=== PATIENT | male | born 1995 | race Caucasian/White ===

== ENCOUNTER 2017-07-24 10:54 | Day surgery (SDC) | payer MEDICAID ==
[~2017-07-24] VITALS: Ht 177.8 cm; Wt 54.3 kg
[~2017-07-24 10:54] MED LIST: [UNRECOGNIZED DRUG - REMARK]
[2017-07-24] MEDS ORDERED: LACTATED RINGERS 1,000 ML IV SCH (11:28)
[2017-07-24 11:38] VITALS: BP 116/77
[2017-07-24] MEDS ORDERED: PROPOFOL 10 MG/ML, 20ML ONE ×2 (12:11→13:09)
== END 2017-07-24 15:10 ==
LOC: OUT 10:54
PROVIDERS: ATTEND Internal Medicine Gastroenterology
DX: K25.9 Gastric ulcer, unspecified as acute or chronic, without hemorrhage or perforation (principal); K29.50 Unspecified chronic gastritis without bleeding; Z88.6 Allergy status to analgesic agent; Z88.8 Allergy status to other drugs, medicaments and biological substances
CPT/HCPCS: 43239; 88305; J2704; J7120

== ENCOUNTER 2018-09-29 18:01 | Emergency (ER) | payer MEDICAID ==
[~2018-09-29] VITALS: Ht 177.8 cm; Wt 55.1 kg
[~2018-09-29 18:01] MED LIST changes: +PANT40TA5 PO; +TAMS-11 PO
--- NOTE | 2018-09-29 18:37 | NUR ---
MD DISCUSSED PROCEDURAL SEDATION AND MED TO BE GIVEN WITH RISKS AND BENEFITS.
[2018-09-29] MEDS ORDERED: TAMSULOSIN 0.4 MG CAP.ER.24H ONE (18:51)
[2018-09-29] MEDS ORDERED: PROPOFOL 10 MG/ML, 20ML ONE ×2 (18:51→19:54)
[2018-09-29] MEDS ORDERED: PROPOFOL 10 MG/ML, 20ML IVPush ONE (19:00)
[2018-09-29] MEDS ORDERED: TAMSULOSIN 0.4 MG CAP.ER.24H PO ONE (19:00)
--- NOTE | 2018-09-29 19:06 | NUR ---
RPT TO ARTURO ABARCA
--- NOTE | 2018-09-29 19:46 | NUR ---
PROCEDUAL SEDATION IS READY VSS STABLE MD JORDAN WAS NOTIFIED
--- NOTE | 2018-09-29 21:06 | NUR ---
PT IS AWAKE MOTHER AT BED SIDE PT NEEDS URINE
--- NOTE | 2018-09-29 21:21 | NUR ---
PT UP AMBULATED TO URINATION PT WILL BE DC'D VSS STABLE
[2018-09-29 21:25] VITALS: BP 110/68
== END 2018-09-29 21:31 | disposition home or self-care (01) ==
LOC: ED 21:10
DX: T18.5XXA Foreign body in anus and rectum, initial encounter (principal); X58.XXXA Exposure to other specified factors, initial encounter; Y93.89 Activity, other specified; Y92.89 Other specified places as the place of occurrence of the external cause; Y99.8 Other external cause status
CPT/HCPCS: 72170; 99152; 99285

== ENCOUNTER 2019-03-14 14:13 | Emergency (ER) | payer MEDICAID ==
[~2019-03-14] VITALS: Ht 177.8 cm; Wt 55.6 kg
[2019-03-14 16:33] VITALS: BP 126/69
== END 2019-03-14 16:36 | disposition home or self-care (01) ==
LOC: ED 16:25
DX: R09.89 Other specified symptoms and signs involving the circulatory and respiratory systems (principal); R13.10 Dysphagia, unspecified; K21.9 Gastro-esophageal reflux disease without esophagitis
CPT/HCPCS: 70360; 99284

== ENCOUNTER 2020-11-03 10:55 | Emergency (ER) | payer MEDICAID ==
[~2020-11-03] VITALS: Ht 180.3 cm; Wt 56.7 kg
[~2020-11-03 10:55] MED LIST changes: -PANT40TA5 PO; +PANT40TA6 PO
[2020-11-03 11:00] VITALS: BP 162/90
--- NOTE | 2020-11-03 11:45 | NUR ---
US AND FAMILY AT BS.
--- NOTE | 2020-11-03 12:24 | NUR ---
ALL RESULTS BACK, PT FOR RECHECK.
== END 2020-11-03 12:43 | disposition home or self-care (01) ==
LOC: ED 12:34
DX: I80.8 Phlebitis and thrombophlebitis of other sites (principal)
CPT/HCPCS: 99284

== ENCOUNTER 2020-11-28 13:44 | Emergency (ER) | payer MEDICAID ==
[~2020-11-28] VITALS: Ht 180.3 cm; Wt 57.1 kg
[2020-11-28 13:48] VITALS: BP 133/85
--- NOTE | 2020-11-28 13:53 | NUR ---
TRAIGE: BLOOD CLOT RIGHT ARM: WAS HERE 2ND AND FOUND HERE, DID TWO WEEKS ASPRIN BUT STILL HAS PAIN. DR IN [place] DIRECTED HIM TO COME BACK TO ER. GOES TO [facility] - HX OF SJOGRENS, PERIPHERAL NEUROPATHY, SMALL FIBER NEUROPATHY, REYNAUDS, CHRONIC FATIGUE, CHRINC MIGRANES, RA, LUPUS, POTS.
[2020-11-28 14:32] LABS: BASOPHILS % (AUTO) 1 % (0-1); EOSINOPHILS % (AUTO) 2 % (1-7); LYMPHOCYTES % (AUTO) 29 % (22-44); MD NO; MEAN CORPUSCULAR HEMOGLOBIN 29.3 pg (27.5-34.5); MEAN CORPUSCULAR HGB CONC 34.5 g/dL (33.2-36.2); MEAN PLATELET VOLUME 7.6 fL (7.4-10.4); MONOCYTES % (AUTO) 6 % (2-9); NEUTROPHILS % (AUTO) 63 % (42-75); PLATELET COUNT 237 x10^3/uL (130-400); RED BLOOD COUNT 5.74 x10^6/uL (4.38-5.82); RED CELL DISTRIBUTION WIDTH 13.4 % (9.4-14.8)
[2020-11-28] MEDS ORDERED: KETOROLAC 30 MG/1 ML ONE (14:39)
[2020-11-28] MEDS ORDERED: ACETAMINOPHEN 500 MG TABLET ONE (14:39)
[2020-11-28 14:41] LABS: ALBUMIN 4.3 g/dL (3.4-5.0); ANION GAP 5 mmol/L (5-15); CALCIUM 8.7 mg/dL (8.5-10.1); CHLORIDE 107 mmol/L (98-107)
[2020-11-28 14:47] LABS: ALANINE AMINOTRANSFERASE 32 U/L (12-78); ALKALINE PHOSPHATASE 72 U/L (45-117); BILIRUBIN,TOTAL 0.6 mg/dL (0.2-1.0); CREATININE 1.08 mg/dL (0.7-1.3); TOTAL PROTEIN 7.6 g/dL (6.4-8.2); TROPONIN I < 0.015 ng/mL (0.000-0.045)
[2020-11-28] MEDS ORDERED: KETOROLAC 30 MG/1 ML IVPush ONE (15:00)
[2020-11-28] MEDS ORDERED: SODIUM CHLORIDE FLUSH 10ML SYR IVF ONE (15:00)
[2020-11-28] MEDS ORDERED: ACETAMINOPHEN 500 MG TABLET PO ONE (15:00)
[2020-11-28] MEDS ORDERED: OMNIPAQUE 350 MG/ML, 75ML BOTTLE ONE (15:55)
== END 2020-11-28 16:36 | disposition home or self-care (01) ==
LOC: ED 16:30
DX: R07.89 Other chest pain (principal); R06.02 Shortness of breath; M79.601 Pain in right arm; K21.9 Gastro-esophageal reflux disease without esophagitis
CPT/HCPCS: 36415; 71275; 80053; 84484; 85025; 93005; 93971; 96374; 99285; J1885; Q9967

== ENCOUNTER 2021-02-01 07:28 | Day surgery (SDC) | payer MEDICAID ==
[~2021-02-01] VITALS: Ht 180.3 cm; Wt 54.3 kg
[~2021-02-01 07:28] MED LIST changes: +ALBU90AE INH; +FLUT9.9S NS; +MULT-658 PO; +SUCR1TAB PO; +VITA1TAB38 PO; +Vitamin c PO
[2021-02-01 08:17] VITALS: BP 115/81
[2021-02-01] MEDS ORDERED: hydrALAzine 20 MG/ML, 1ML IV PRN (08:30)
[2021-02-01] MEDS ORDERED: PROMETHAZINE 25 MG/ML, 1ML IVPush PRN (08:30)
[2021-02-01] MEDS ORDERED: LABETALOL 5MG/ML, 20ML IV PRN (08:30)
[2021-02-01] MEDS ORDERED: LACTATED RINGERS 1,000 ML IV SCH (08:30)
[2021-02-01] MEDS ORDERED: FENTANYL PF 100 MCG/2ML IV PRN (08:30)
[2021-02-01] MEDS ORDERED: CHLORHEXIDINE 15 ML UDC PO ONE (08:30)
[2021-02-01] MEDS ORDERED: ONDANSETRON 2MG/ML, 2ML IVPush PRN (08:30)
[2021-02-01] MEDS ORDERED: FENTANYL PF 100 MCG/2ML ONE (08:42)
[2021-02-01] MEDS ORDERED: MIDAZOLAM 1 MG/ML, 2ML ONE (08:42)
[2021-02-01] MEDS ORDERED: PROPOFOL 10 MG/ML, 20ML ONE (08:56)
[2021-02-01] MEDS ORDERED: EPHEDRINE 50 MG/ML, 1ML ONE (09:48)
== END 2021-02-01 11:25 | disposition home or self-care (01) ==
LOC: OUT 07:28
PROVIDERS: ATTEND Internal Medicine Gastroenterology
DX: R13.10 Dysphagia, unspecified (principal); K20.90 Esophagitis, unspecified without bleeding; K29.50 Unspecified chronic gastritis without bleeding; J45.909 Unspecified asthma, uncomplicated; M79.7 Fibromyalgia; M32.9 Systemic lupus erythematosus, unspecified; G43.909 Migraine, unspecified, not intractable, without status migrainosus; M06.9 Rheumatoid arthritis, unspecified; Z20.822 Contact with and (suspected) exposure to COVID-19; Z79.899 Other long term (current) drug therapy; Z88.5 Allergy status to narcotic agent; Z88.8 Allergy status to other drugs, medicaments and biological substances; Z80.49 Family history of malignant neoplasm of other genital organs
CPT/HCPCS: 43239; 43248; 88305; J2250; J2704; J3010; J7120; U0003; U0005